=== PATIENT | female | born 1950 ===

== ENCOUNTER 2024-11-28 17:51 | Emergency (ER) | payer MEDICARE, OTHER, SELFPAY ==
--- NOTE | ~2024-11-28 | CT_ITS ---
CLINICAL HISTORY: R flank pain CT abdomen and pelvis without contrast Comparison: None provided Findings: The lung bases are clear. The solid organs are within normal limits. Status post cholecystectomy. No renal stones. No bowel obstruction, pneumoperitoneum, or pneumatosis. Sigmoid colonic diverticulosis without evidence of diverticulitis. Pelvic contents unremarkable. Normal appendix. The bones are intact. IMPRESSION: No acute findings. Sigmoid diverticulosis without evidence of diverticulitis. This document has been electronically signed by: Darrick Michaud MD on 11/29/2024 03:45:34
--- NOTE | 2024-11-28 17:54 | ECG_ITS ---
Test Reason : CHEST PAIN Blood Pressure : */* mmHG Vent. Rate : 93 BPM Atrial Rate : 93 BPM P-R Int : 158 ms QRS Dur : 84 ms QT Int : 348 ms P-R-T Axes : 37 -26 52 degrees QTcB Int : 432 ms Normal sinus rhythm Normal ECG No previous ECGs available Referred By: Sarah Benavides Electronically Signed By: SAMANTHA BOOTH
[2024-11-28 18:13] VITALS: BP 123/77; PULSE 93; RESP 18; TEMP 36.6; O2SAT 97; BMI 30.4
--- NOTE | 2024-11-28 18:18 | ED_ITS ---
HPI - General Adult General Chief complaint: General Medical Stated complaint: pain in chest, trouble breathing Time Seen by Provider: 11/29/24 00:04 Source: patient Mode of arrival: ambulatory Limitations: no limitations History of Present Illness ED Provider: Dr. Nathalia Arcos HPI narrative: Patient comes to the emergency room complaining of right-sided back pain/flank pain for 4 days. Patient states that the urine seems to be closer than usual, but denies any fever or chills, denies nausea vomiting or diarrhea, denies hematuria or dysuria. Patient denies any trauma. Patient states that she has arthritis and takes muscle relaxants, naproxen and other anti-inflammatories and she is still having pain. Related Data Previous Rx's ?Medication ?Instructions ?Recorded cefuroxime axetil 250 mg tablet 250 mg PO BID #14 tabs 11/29/24 lidocaine 5 % topical patch 1 patch topical DAILY PRN pain #15 11/29/24 ea miconazole nitrate 1,200 mg-2 % See Rx Instructions va ginal 11/29/24 vaginal kit .COMPLEX #1 ea Allergies Allergy/AdvReac Type Severity Reaction Status Date / Time codeine Allergy Unknown Verified 11/28/24 18:15 Review of Systems 2 Review of Systems: Constitutional : No Weight loss, No Fever, No Chills, No Night Sweats, No Fatigue, No Malaise ENT/Mouth : No Hearing loss, No Ear Pain, No Nasal Congestion, No Sinus Pain, No Hoarseness, No sore throat, No Rhinorrhea, No Swallowing Difficulty Eyes: No Eye Pain, No Swelling, No Redness, No Foreign Body, No Discharge, No Vision Changes Cardiovascular : No Chest Pain, No SOB, No Dyspnea on Exertion, No Orthopnea, No Edema, No Palpitations Respiratory : No Cough, No Sputum, No Wheezing, No Smoke Exposure, No Dyspnea Gastrointestinal : No Nausea, No Vomiting, No Diarrhea, No Constipation, No abdominal Pain, No Hematochezia, No Melena Genitourinary : no irregular bleeding, No Dysuria, No Urinary Frequency, No Hematuria, No Urinary Incontinence, No Urgency, No Flank Pain, No Urinary Flow Changes, No Hesitancy Musculoskeletal : Complaining of right-sided middle back pain/flank pain Skin : No Skin Lesions, No rash Neuro : No Weakness, No Numbness, No Paresthesias, No Loss of Consciousness, No Dizziness, No Headache Psych : No Anxiety/Panic, No Depression, No SI/HI/AH/VH, No Social Issues, Heme/Lymph: No Bruising, No Bleeding,No Lymphadenopathy Endocrine : No Polyuria, No Polydipsia, No Temperature Intolerance [facility] Past Medical History Medical History (Updated 11/29/24 @ 04:32 by Nathalia Arcos MD) Arthritis Hypothyroidism Social History Social History Smoked in Last 30 Days: No Advance Directives: No Advance Directives Information Provided: Yes Do you have a plan to hurt others: No Plan Physical Exam ED Vital Signs: Vital Signs - 24 hr 11/28/24 18:13 11/28/24 23:38 Temperature 98 F 98.8 F Pulse Rate 93 87 Respiratory Rate 18 16 Blood Pressure 123/77 140/76 H Pulse Oximetry 97 94 Oxygen Delivery Method Room Air Room Air BMI result Body Mass Index 30.4 Course Course Course Narrative: This is a Rapid Medical Examination (RME) performed by Shy Benavides PA-C in triage. Full HPI, ROS, assessment and treatment plan per primary provider in the Main ED. Hx: 74 yo F here for eval of mid to lower back pain (R>L) x 4 days. assoc dark urine. Plan: labs, UA Medical Decision Making Medical Decision Making [facility] Narrative: My interpretation of labs: No significant abnormality in patient's hematology or chemistry, normal LFTs, urinalysis negative for nitrites, reported appearance of urine dark yellow and cloudy Given the patient's symptoms and appearance of the urine, we will treat as a UTI. CT scan does not show any acute abnormality that would explain the source of the patient's pain, most likely it is musculoskeletal. Patient states that any time that she coughs or moves a certain way, that is when it hurts. Otherwise she can tolerate the pain. Also, patient states that she has been on plenty of antibiotics for the last few weeks including doxycycline for a skin infection and other antibiotics for a dental infection. Patient states that now she has cottag cheese like discharge. One dose of fluconazole was given p.o. to the patient. For pain management, patient decided to use lidocaine patches. Patient states that she has other medications at home and she does not want narcotics. Differential Diagnosis Differential Diagnoses: The differential diagnosis associated with the presentation includes (Ureterolithiasis, renal colic, musculoskeletal pain, costochondritis) Admission/Observation Consideration of admission/observation: Escalation of care including admission/observation considered (Given patient's symptoms, observation was considered) Lab Data MDM Lab Attestation statement: I reviewed the patient's lab results. 11/28/24 19:03 11/28/24 19:03 Labs: Lab Results 11/28/24 Range/Units 19:03 WBC 9.3 (4.8-10.8) X10*3/uL RBC 4.80 (4.20-5.50) X10*6/uL Hgb 14.3 (12.0-16.0) g/dl Hct 41.2 (37.0-47.0) % MCV 85.8 (80.0-98.0) fL MCH 29.8 (27.0-33.0) pg MCHC 34.7 (31.0-35.0) g/dl RDW 13.9 (11.0-16.0) % Plt Count 273 (160-400) X10*3/uL MPV 9.5 (9.4-12.3) fL Immature Gran % (Auto) 0.5 H (0.0-0.4) % Neut % (Auto) 69.7 (45-73) % Lymph % (Auto) 17.8 L (20-40) % [place] % (Auto) 8.3 (2-11) % Eos % (Auto) 2.7 (0-4) % Baso % (Auto) 1.0 (0-2) % Lymph # (Auto) 1.7 (1.2-4.9) X10*3/uL [place] # (Auto) 0.8 (0.1-1.2) X10*3/uL Eos # (Auto) 0.3 (0.0-0.4) X10*3/uL Baso # (Auto) 0.1 (0.0-0.2) X10*3/uL Abs Immat Gran (auto) 0.05 H (0.00-0.03) X10*3/uL Absolute Neuts (auto) 6.5 (2.0-8.3) x10*3/uL Absolute Nucleated RBC 0.000 (0.0-0.012) X10*3/uL Nucleated RBC % (auto) 0.0 (0.0-0.2) /100WBC Sodium 141 (135-145) mmol/L Potassium 4.2 (3.3-5.1) mmol/L Chloride 105 (96-108) mmol/L Carbon Dioxide 25 (22-29) mmol/L Anion Gap 15 (12-20) BUN 33 H (9-16) mg/dL Creatinine 1.27 (0.5-1.4) mg/dL Estim Creat Clear Calc 41.3 Estimated GFR 41 Random Glucose 110 (60-115) mg/dL Calcium 10.1 (8.4-10.2) mg/dL Magnesium 2.3 (1.6-2.6) mg/dL Total Bilirubin 0.6 (0.0-1.0) mg/dL AST 20 (5-31) U/L ALT 23 (0-31) U/L Alkaline Phosphatase 90 (39-117) U/L Total Protein 7.0 (6.5-8.0) g/dL Albumin 4.1 (3.5-5.0) g/dL Lipase 23 (8-78) U/L Urine Color Dark Yellow Urine Appearance Cloudy Urine pH 5.5 (5.0-9.0) Ur Specific [place] 1.025 (1.005-1.025) Urine Protein Trace (Neg-Trace) mg/dL Urine Glucose (UA) Negative (Negative) mg/dL Urine Ketones Trace (Negative) mg/dL Urine Blood Negative (Negative) Urine Nitrite Negative (Negative) Ur Leukocyte Esterase Small (1+) H (Negative) Urine RBC 0-2 (0-2) /HPF Urine WBC 0-5 (0-5) /HPF Ur Squamous Epith Cells 3-5 (0-2) /HPF Urine Bacteria None Seen (None Seen) Hyaline Casts 6-10 (0-2) /LPF Granular Casts Present Independent Interpretation I performed an independent interpretation of an: EKG and CT Scan Radiology Impression Discussion of test interpretation with radiology: I have reviewed the radiologist's reading. Radiologist Impression: The lung bases are clear. The solid organs are within normal limits. Status post cholecystectomy. No renal stones. No bowel obstruction, pneumoperitoneum, or pneumatosis. Sigmoid colonic diverticulosis without evidence of diverticulitis. Pelvic contents unremarkable. Normal appendix. The bones are intact. IMPRESSION: No acute findings. Sigmoid diverticulosis without evidence of diverticulitis. Independent Historian Clinical information obtained from an independent historian. History obtained from or confirmed by: Spouse Critical Care Time Critical Care Time Critical Care Time: Yes Total Critical Care Time: 35 Attestation: I have personally provided critical care time. Time includes review of lab data, radiology results, discussion with consultants, and monitoring for potential decompensation. Intervention performed as documented. Discharge Plan Discharge Clinical Impression: Back pain, Candidiasis of female genitalia Patient Disposition: Home, Self-Care Instructions: Yeast Infection (ED), Back Pain (ED) Additional Instructions: Please follow-up with your primary care physician tomorrow. If you have any worsening or new symptoms, please return to the emergency room or call 911 Prescriptions: New lidocaine 5 % adhesive patch,medicated 1 patch topical DAILY PRN (Reason: pain) Qty: 15 0RF Rx Instructions: leave on most painful area for up to 12 hrs cefuroxime axetil 250 mg tablet 250 mg PO BID Qty: 14 0RF miconazole nitrate 1,200-2 mg-% kit See Rx Instructions .ROUTE .COMPLEX Qty: 1 0RF Rx Instructions: place 1 insert into vagina at bedtime day 1;apply cream to area outside vagina twice daily for up to 7 days Print Language: [place]
[2024-11-28 19:11] LABS: MANUAL DIFF FLAG NO
[2024-11-28 19:12] LABS: Hematocrit 41.2 % (37.0-47.0); Hemoglobin 14.3 g/dl (12.0-16.0); Imm Gran Abs Auto 0.05 X10*3/uL (0.00-0.03); Imm Gran Pct Auto 0.5 % (0.0-0.4); Lymphocytes Absolute Auto 1.7 X10*3/uL (1.2-4.9); Mean Corpuscular HGB Conc 34.7 g/dl (31.0-35.0); Mean Corpuscular Hemoglobin 29.8 pg (27.0-33.0); Mean Corpuscular Volume 85.8 fL (80.0-98.0); NRBC Abs Auto 0.000 X10*3/uL (0.0-0.012); NRBC Pct Auto 0.0 /100WBC (0.0-0.2); Platelet Count 273 X10*3/uL (160-400); Red Blood Count 4.80 X10*6/uL (4.20-5.50); White Blood Count 9.3 X10*3/uL (4.8-10.8)
[2024-11-28 19:13] LABS: Appearance Urine Cloudy; Glucose Urine UA Negative (Negative); PH 5.5 (5.0-9.0); Specific Gravity - Urine 1.025 (1.005-1.025); UMIC TRIGGER UACC YES
[2024-11-28 19:28] LABS: UACC Culture Trigger YES
[2024-11-28 19:40] LABS: Alanine Aminotransferase 23 U/L (0-31); Albumin Level 4.1 g/dL (3.5-5.0); Alkaline Phosphatase 90 U/L (39-117); Anion Gap 15 (12-20); Aspartate Amino Transferase 20 U/L (5-31); Blood Urea Nitrogen 33 mg/dL (9-16); Calcium 10.1 mg/dL (8.4-10.2); Carbon Dioxide 25 mmol/L (22-29); Chloride 105 mmol/L (96-108); Creatinine Clr Calc Pharmacy 41.3; Estimated Glomerular Filt Rate 41; Lipase 23 U/L (8-78); Magnesium 2.3 mg/dL (1.6-2.6); Potassium 4.2 mmol/L (3.3-5.1); Sodium 141 mmol/L (135-145); Total Protein 7.0 g/dL (6.5-8.0)
[2024-11-28 23:38] VITALS: BP 140/76; PULSE 87; RESP 16; TEMP 37.1; O2SAT 94
--- NOTE | 2024-11-28 23:55 | PC.NURSE ---
pt came in from waiting room with lower back pain radiating to b/l flanks for 4 days, pt is on several medication (levothyroxine, Tylenol, probiotic, doxycycline, and meloxicam). Spouse is at bedside. Pt rates pain at a 6/10. denies nausea or diarrhea.
[2024-11-29 04:55] VITALS: BP 132/75; PULSE 87; RESP 16; TEMP 37.1; O2SAT 95
== END 2024-11-29 05:04 | disposition home or self-care (01) ==
PROVIDERS: Physician Assistant Medical; Emergency Provider Emergency Medicine; PCP Nurse Practitioner Adult Health
DX: M54.9 Dorsalgia, unspecified (principal); B37.31 Acute candidiasis of vulva and vagina; R10.9 Unspecified abdominal pain
CPT/HCPCS: 36415; 74176; 80053; 81001; 83690; 83735; 85025; 87086; 93005; 99284; 99291

== ENCOUNTER → 2024-11-28 17:54 | Outpatient (BNV) | payer MEDICARE, OTHER, SELFPAY | PROVIDERS: Emergency Provider Emergency Medicine; PCP Nurse Practitioner Adult Health; Visit Provider Internal Medicine | DX: R07.9 Chest pain, unspecified (principal) | CPT/HCPCS: 93010 ==